=== PATIENT | female | born 1940 | race Caucasian/White ===

== ENCOUNTER 2016-12-20 04:19 | Emergency (ER) | payer MEDICARE, OTHER ==
[~2016-12-20 04:19] MED LIST: ASPIR 8181 MG PO; BIOTIN2500 MCG PO; CARAFATE1 GM PO; CATAPRES0.1 MG PO; CEFTIN500 MG PO; CHLORPHENIRAMINE4 MG PO; DIOVAN HCT 3201 EAC1 PO; HUMALOG100 UNIT/1 INJ; JANUVIA100 MG PO; LANTUS SOL100 UNIT/1 INJ; LOMOTIL 2.5-0.1 EACH PO; LOVASTATIN40 MG PO; METOPROLOL TART25 MG PO; NEURONTIN300 MG PO; ONCE DAILY1 EACH PO; PROBIOTIC1 EAC1 PO; VANCOCIN HCL125 MG PO; ZOFRAN4 MG PO; ZYLOPRIM100 MG PO
== END 2016-12-20 07:29 | disposition home or self-care (01) ==
LOC: ER 04:19
DX: N28.9 Disorder of kidney and ureter, unspecified (principal); R11.2 Nausea with vomiting, unspecified; F41.9 Anxiety disorder, unspecified; I10 Essential (primary) hypertension; E11.9 Type 2 diabetes mellitus without complications; E78.5 Hyperlipidemia, unspecified; Z79.4 Long term (current) use of insulin; Z79.899 Other long term (current) drug therapy; Z88.2 Allergy status to sulfonamides; Z88.8 Allergy status to other drugs, medicaments and biological substances; Z90.710 Acquired absence of both cervix and uterus; Z87.891 Personal history of nicotine dependence
CPT/HCPCS: 36415; 96361; 96374; J0780

== ENCOUNTER 2017-01-16 18:20 | Emergency (ER) | payer MEDICARE | END 2017-01-16 22:09 | disposition home or self-care (01) | LOC: ER 18:20 | DX: I12.9 Hypertensive chronic kidney disease with stage 1 through stage 4 chronic kidney disease, or unspecified chronic kidney disease (principal); E10.22 Type 1 diabetes mellitus with diabetic chronic kidney disease; N18.9 Chronic kidney disease, unspecified; E86.0 Dehydration; D64.9 Anemia, unspecified; E78.5 Hyperlipidemia, unspecified; F41.9 Anxiety disorder, unspecified; Z90.13 Acquired absence of bilateral breasts and nipples; Z90.710 Acquired absence of both cervix and uterus; Z87.891 Personal history of nicotine dependence; Z88.2 Allergy status to sulfonamides; Z88.8 Allergy status to other drugs, medicaments and biological substances; Z79.899 Other long term (current) drug therapy | CPT/HCPCS: 36415; 96361; 96374; J2550 ==

== ENCOUNTER 2017-03-05 12:17 | Observation (INO) | payer OTHER ==
[~2017-03-05] VITALS: Ht 157.5 cm; Wt 78.6 kg
== END 2017-03-06 13:50 | disposition home or self-care (01) ==
LOC: ER 12:17 → MED 15:17
PROVIDERS: ADMIT Internal Medicine
DX: D62 Acute posthemorrhagic anemia (principal); K92.2 Gastrointestinal hemorrhage, unspecified; I12.9 Hypertensive chronic kidney disease with stage 1 through stage 4 chronic kidney disease, or unspecified chronic kidney disease; N17.9 Acute kidney failure, unspecified; D63.1 Anemia in chronic kidney disease; N18.3 Chronic kidney disease, stage 3 (moderate); E78.5 Hyperlipidemia, unspecified; K21.9 Gastro-esophageal reflux disease without esophagitis; E21.3 Hyperparathyroidism, unspecified; E11.22 Type 2 diabetes mellitus with diabetic chronic kidney disease; Z79.899 Other long term (current) drug therapy; Z85.3 Personal history of malignant neoplasm of breast; Z88.2 Allergy status to sulfonamides; Z88.8 Allergy status to other drugs, medicaments and biological substances; Z90.710 Acquired absence of both cervix and uterus; Z90.49 Acquired absence of other specified parts of digestive tract; Z87.891 Personal history of nicotine dependence
CPT/HCPCS: 36415; 36430; 96361; 96374; 96375; 96376; G0378; P9021